=== PATIENT | female | born 1965 | race Caucasian/White ===

== ENCOUNTER 2021-07-28 12:02 | Day surgery (SDC) | payer BC ==
[~2021-07-28 12:02] MED LIST: Lactated Ringers 1,000 ML IV ONE; Lactated Ringers 1,000 ML IV SCH
[2021-07-28] MEDS ORDERED: Versed 2 MG/2 ML Injection ONE (16:09)
[2021-07-28] MEDS ORDERED: DIPRIVAN 200 MG/20 ML IV ONE ×2 (16:09→16:40)
[2021-07-28] MEDS ORDERED: Lactated Ringers 1,000 ML IV ONE (16:41)
[2021-07-28 17:33] VITALS: O2SAT 100
[2021-07-28 18:00] VITALS: BP 131/88; PULSE 66
--- NOTE | 2021-07-29 09:10 | OP ---
PROCEDURE DATE/TIME: 07/28/2021 1622 PREOPERATIVE DIAGNOSIS: Screening. POSTOPERATIVE DIAGNOSES: 1) Colon polyp. 2) Angulated and tortuous sigmoid colon. 3) Benign anterior small anal tag. PLAN: Colonoscopy in five years. PROCEDURE: Colonoscopy to cecum. PROCEDURE PERFORMED BY: Zhanna Green M.D. COMPLICATIONS: None. ESTIMATED BLOOD LOSS: Minimal. ANESTHESIA: MAC. SPECIMEN: Sigmoid polyp. HISTORY: This is a patient who presents for colonoscopy. Risks, benefits, alternatives were reviewed with her and confirmed. H&P and consent reviewed with her and confirmed. DESCRIPTION OF PROCEDURE: She was then brought back to the endoscopy suite and laid in left lateral decubitus position. A complete time out performed. First, a rectal exam was done. She had a very small anterior benign anal tag. No significantly enlarged hemorrhoid tissue. No fissure. No mass. The scope was then inserted and gently advanced to the level of the cecum. The sigmoid colon itself was angulated and tortuous throughout the sigmoid and we did use some gentle abdominal pressure to help navigate the scope this was done very gently and easily. The scope was advanced to the level of the cecum. The ileocecal valve and appendiceal orifice were visualized and these were normal. We then carefully withdrew the scope taking a circumferential view. She had quite a bit of liquid stool throughout the colon, some areas thicker, a decent amount of bubble. We used Simethicone irrigation and we were able to get a satisfactory view throughout the colon. I did not see any other polyps or lesions except for one small polyp 2 mm in the sigmoid colon which was taken in its entirety with cold forceps. The site was hemostatic. The specimen retrieved and sent to pathology. There were no diverticula or other masses. The scope was then completely withdrawn. The remainder of the colon was normal. The patient tolerated the procedure well and no immediate complications. Plan will be colonoscopy in five years.
== END 2021-07-28 18:05 | disposition home or self-care (01) ==
LOC: SDC 12:02
PROVIDERS: ATTEND Surgery
DX: Z12.11 Encounter for screening for malignant neoplasm of colon (principal); K63.5 Polyp of colon; K63.89 Other specified diseases of intestine; K64.4 Residual hemorrhoidal skin tags
CPT/HCPCS: 88305; J2250; J2704